=== PATIENT | female | born 2000 | race Caucasian/White ===

== ENCOUNTER 2024-09-25 11:38 | Emergency (ER) | payer OTHER ==
[~2024-09-25] VITALS: Ht 162.6 cm; Wt 54.4 kg
[2024-09-25] MEDS ORDERED: CHLO25CA22 PO (11:59)
[2024-09-25] MEDS ORDERED: CHLORDIAZEPOXIDE HCL 25 MG CAPSULE ONE (12:01)
[2024-09-25] MEDS: CHLORDIAZEPOXIDE HCL 25 MG CAPSULE PO ONE (12:05)
[2024-09-25 12:14] VITALS: BP 133/87; TEMP 98.6; O2SAT 100
== END 2024-09-25 12:15 | disposition home or self-care (01) ==
LOC: ER 11:45
DX: F10.10 Alcohol abuse, uncomplicated (principal); F41.9 Anxiety disorder, unspecified; Y90.9 Presence of alcohol in blood, level not specified